=== PATIENT | male | born 1950 | race Caucasian/White ===

== ENCOUNTER 2020-09-29 22:53 | Emergency (ER) | payer MEDICARE, OTHER ==
[~2020-09-29] VITALS: Ht 172.7 cm; Wt 86.2 kg
[~2020-09-29 22:53] MED LIST: Z.0.ALEVE220 M1 PO; Z.0.ASPIRIN325 MG PO; Z.0.METOPROLOL SUCC5 PO; Z.0.NIASPAN1000 MG PO; Z.0.VYTORIN 10-801 E PO; ZANTAC PO
== END 2020-09-30 00:20 | disposition home or self-care (01) ==
LOC: ER 09-30 00:10
DX: Z46.6 Encounter for fitting and adjustment of urinary device (principal)
CPT/HCPCS: 99282